=== PATIENT | male | born 1985 | race American Indian/Alaskan Native ===

== ENCOUNTER 2017-12-12 14:24 | Emergency (ER) | payer SELFPAY ==
[2017-12-12] MEDS ORDERED: TYLENOL ONE (15:00)
[2017-12-12] MEDS ORDERED: TYLENOL PO ONE (15:13)
[2017-12-12 15:48] LABS: Basophils % (Auto) 0.1 % (0.0-1.8); Hematocrit 37.8 % (35.5-45.6); Hemoglobin 12.8 gm/dl (11.8-15.2); Lymphocytes # (Auto) 0.9 K/mm3 (1.2-5.4); Lymphocytes % (Auto) 10.2 % (13.4-35.0); Mean Corpuscular HGB Conc 34 % (32-34); Mean Corpuscular Hemoglobin 31 pg (28-32); Mean Corpuscular Volume 92 fl (84-94); Monocytes # (Auto) 0.9 K/mm3 (0.0-0.8); Monocytes % (Auto) 10.7 % (0.0-7.3); Platelet Count 231 K/mm3 (140-440); Red Blood Count 4.12 M/mm3 (3.65-5.03); Red Cell Distribution Width 14.2 % (13.2-15.2)
[2017-12-12 16:00] LABS: BUN/Creatinine Ratio 15; Blood Urea Nitrogen 18 mg/dL (9-20); Calcium 9.1 mg/dL (8.4-10.2); Hemolysis Index 0
--- NOTE | 2017-12-12 18:53 | XRay Report ---
FINAL REPORT EXAM: XR CHEST ROUTINE 2V HISTORY: shortness of breath TECHNIQUE: Two view chest PA and lateral PRIORS: None. FINDINGS: Cardiac and mediastinal contours are unremarkable. No focal pulmonary infiltrate is identified. No pleural fluid collection seen. Pulmonary vasculature is unremarkable. IMPRESSION: Negative two-view chest
[2017-12-12 21:07] VITALS: BP 142/62
== END 2017-12-13 01:45 | disposition left against medical advice (07) ==
LOC: ED 14:24
DX: Z53.21 Procedure and treatment not carried out due to patient leaving prior to being seen by health care provider (principal)
CPT/HCPCS: 36415; 71046; 80048; 85025; 87040; 93005; 93010

== ENCOUNTER 2017-12-13 06:59 | Emergency (ER) | payer SELFPAY ==
[2017-12-13 07:35] VITALS: BP 112/82
[2017-12-13 08:04] LABS: Basophils % (Auto) 0.4 % (0.0-1.8); Hematocrit 39.1 % (35.5-45.6); Hemoglobin 13.1 gm/dl (11.8-15.2); Lymphocytes % (Auto) 15.5 % (13.4-35.0); Mean Corpuscular HGB Conc 34 % (32-34); Mean Corpuscular Hemoglobin 32 pg (28-32); Mean Corpuscular Volume 94 fl (84-94); Monocytes # (Auto) 0.6 K/mm3 (0.0-0.8); Monocytes % (Auto) 8.6 % (0.0-7.3); Platelet Count 206 K/mm3 (140-440); Red Blood Count 4.17 M/mm3 (3.65-5.03); Red Cell Distribution Width 14.2 % (13.2-15.2)
[2017-12-13 08:20] LABS: BUN/Creatinine Ratio 16; Blood Urea Nitrogen 21 mg/dL (9-20); Calcium 8.3 mg/dL (8.4-10.2); Hemolysis Index 11
--- NOTE | 2017-12-13 21:29 | Emergency Department Report ---
ED Shortness of Breath HPI - General Chief Complaint: Dyspnea/Respdistress Stated Complaint: FLU-LIKE SX Time Seen by Provider: 12/13/17 21:26 Source: patient Mode of arrival: Ambulatory Limitations: No Limitations - History of Present Illness Initial Comments: This is a pleasant 32-year-old HIV-positive male who comes to the ER for evaluation of cough with fever or chills and green sputum production for the past 3 days. He states that he takes his HIV medications off and on. He admits to smoking nicotine as well as THC as well as crack cocaine. He does drink alcohol socially. He is gainfully employed at this time. In 2013, he did have pneumonia. He states that today he feels like he did back then. He reports that back in June of last year his CD 4 count was around 300. He states that he has been recently taking his medications. He also complains of body aches, chills and a headache. When asked about sick contacts, he denies any known sick contacts at this time. Family history is noncontributory. MD Complaint: shortness of breath, cough -: Gradual, days(s) (3) Severity: moderate Consistency: constant Improves With: nothing Worsens With: nothing Known History Of: recurrent pnemonia, HIV Context: recent URI Associated Symptoms: fever, cough, sputum production Treatments Prior to Arrival: none - Related Data Home Oxygen Therapy: No Previous Rx's Medication Instructions Recorded Last Taken Type ALBUTEROL Inhaler [ProAir HFA 2 puff IH QID PRN #1 inhalation 12/13/17 Unknown Rx Inhaler] Sulfamethoxazole/Trimethoprim 1 each PO BID 15 Days #30 tablet 12/13/17 Unknown Rx [Bactrim DS TAB] Allergies Allergy/AdvReac Type Severity Reaction Status Date / Time No Known Allergies Allergy Unverified 12/12/17 15:01 ED Review of Systems ROS: Stated complaint: FLU-LIKE SX Other details as noted in HPI Comment: All other systems reviewed and negative Constitutional: see HPI Eyes: as per HPI ENT: as per HPI Respiratory: see HPI Cardiovascular: as per HPI Endocrine: see HPI Gastrointestinal: as per HPI Genitourinary: as per HPI Musculoskeletal: as per HPI Skin: as per HPI Neurological: as per HPI Psychiatric: as per HPI Hematological/Lymphatic: as per HPI ED Past Medical Hx - Past Medical History Previous Medical History?: No Hx HIV: Yes Additional medical history: Bronchitis, Pneumonia - Surgical History Past Surgical History?: Yes - Social History Smoking Status: Current Every Day Smoker Substance Use Type: Alcohol, Cocaine, Marijuana - Medications Home Medications: Home Medications Medication Instructions Recorded Confirmed Last Taken Type ALBUTEROL Inhaler [ProAir HFA 2 puff IH QID PRN #1 inhalation 12/13/17 Unknown Rx Inhaler] Sulfamethoxazole/Trimethoprim 1 each PO BID 15 Days #30 tablet 12/13/17 Unknown Rx [Bactrim DS TAB] ED Physical Exam - General Limitations: No Limitations General appearance: alert - Head Head exam: Present: atraumatic, normocephalic - Eye Eye exam: Present: normal appearance, PERRL, EOMI - ENT ENT exam: Present: normal exam, normal orophraynx - Neck Neck exam: Present: normal inspection - Respiratory Respiratory exam: Present: normal lung sounds bilaterally - Cardiovascular Cardiovascular Exam: Present: regular rate, normal rhythm - GI/Abdominal GI/Abdominal exam: Present: soft, normal bowel sounds - Extremities Exam Extremities exam: Present: normal inspection, full ROM - Back Exam Back exam: Present: normal inspection - Neurological Exam Neurological exam: Present: alert, oriented X3 - Psychiatric Psychiatric exam: Present: normal affect, normal mood - Skin Skin exam: Present: warm, dry, intact ED Course Vital Signs 12/13/17 07:20 Temperature 99.8 F H Pulse Rate 103 H Respiratory 20 Rate Blood Pressure 112/82 O2 Sat by Pulse 103 H Oximetry ED Medical Decision Making - Lab Data Result diagrams: 12/13/17 07:51 12/13/17 07:52 Critical care attestation.: If time is entered above; I have spent that time in minutes in the direct care of this critically ill patient, excluding procedure time. ED Disposition Clinical Impression: Bronchitis Disposition: [id number] TO HOME OR SELFCARE Is pt being admited?: No Does the pt Need Aspirin: No Condition: Stable Instructions: Acute Bronchitis (ED), Chronic Bronchitis (ED) Additional Instructions: Rest, fluids, follow-up with primary care physician of choice, take medications as prescribed, return as needed. Call 911 if you think you're having a life- threatening emergency. Prescriptions: ALBUTEROL Inhaler [ProAir HFA Inhaler] 2 puff IH QID PRN #1 inhalation PRN Reason: Shortness Of Breath Sulfamethoxazole/Trimethoprim [Bactrim DS TAB] 1 each PO BID 15 Days #30 tablet Referrals: SAMANTA FAJARDO MD [Primary Care Provider] - 3-5 Days
== END 2017-12-14 01:07 | disposition home or self-care (01) ==
LOC: ED 06:59
DX: J40 Bronchitis, not specified as acute or chronic (principal); F17.200 Nicotine dependence, unspecified, uncomplicated; F12.10 Cannabis abuse, uncomplicated; F14.10 Cocaine abuse, uncomplicated
CPT/HCPCS: 36415; 80048; 85025; 87040; 87400; 93005; 93010; 99283